=== PATIENT | female | born 2000 | race Caucasian/White ===

== ENCOUNTER 2023-04-05 14:15 | Outpatient (AMB) | payer MEDICAID, SELFPAY ==
--- NOTE | 2023-04-05 14:19 | A.OFFVIS_ITS ---
Intake Vital Signs 04/05/23 14:26 Weight 168 lb BP 150/89 H Blood Pressure Location Rt brachial Position Sitting Pulse 76 Intake Visit Reasons: Pilonidal cyst Intake Note: This patient presents for an assessment for pilonidal cyst. Patient c/o; Onset 3 days, reports symptoms intermittent pain. 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 She has had this area of recurrent pain and swelling near the tailbone for several years now. She says that she had an I and D for this 3 times in the past. This has been recurring and she has had this persistent swelling. She said she had been unable to see a surgeon because she did not have a primary care physician before. She denies any previous surgeries aside from I&D for this area. She admits to being a heavy smoker. [facility] Medical History Sacrococcygeal pilonidal cyst Smoker Surgical History History of surgical removal of pilonidal cyst Family History (Updated 04/05/23 @ 14:32 by JACK Cast) Other Lung cancer Ovarian cancer Social History (Updated 04/05/23 @ 14:31 by JACK Cast) Alcohol intake: never Patient Tobacco Use Status: Current everyday Tobacco user Tobacco use type: Smokeless Tobacco Review of Systems Const Denies chills and Denies fever(s) Card Denies chest pain, Denies dyspnea and Denies dyspnea on exertion Resp Denies cough, Denies dyspnea and Denies dyspnea on exertion GI Denies hematochezia and Denies change in bowel habits Denies hematuria Musc Denies back pain and Denies limited range of motion Neuro Denies focal weakness and Denies convulsions Psych Denies depression and Denies mood swings Physical Exam Vital Signs: Last Vital Signs Pulse 76 04/05/23 14:26 BP 150/89 H 04/05/23 14:26 Const General: comfortable and no acute distress Orientation/consciousness: patient oriented x3 Neck Neck: Yes no lymphadenopathy Resp Auscultation: clear to auscultation bilaterally Cardio Rhythm: regular rhythm GI Palpation (GI): Soft to palpation, nontender and no guarding Back/Spine/Pelvis Other: On the sacrococcygeal area to the right of the midline is note of a induration, about 2.8 cm in diameter, nonfluctuant, no cellulitis, no obvious midline pits at this time Neuro General: patient oriented x3 Assessment & Plan Assessment & Plan (1) Sacrococcygeal pilonidal cyst: Code(s): L05.91 - Pilonidal cyst without abscess Plan: She wants to proceed with excision. I had a long discussion with her about the technique of excision under anesthesia. I reviewed the risks including but not limited to bleeding, infections, poor healing, postop pain, as well as the benefits and alternatives. I explained to her what to expect postoperatively She understand and wants to proceed. Coding Level of Care Code New Pt Level 3 (58061) Diagnoses Sacrococcygeal pilonidal cyst L05.91
[2023-04-05 14:26] VITALS: BP 150/89; PULSE 76
== END 2023-04-05 15:06 | disposition home or self-care (01) ==
PROVIDERS: PCP Nurse Practitioner Family; Referring Provider Family Medicine; Visit Provider Surgery
DX: L05.91 Pilonidal cyst without abscess (principal)
CPT/HCPCS: 99203

== ENCOUNTER → 2023-04-05 14:15 | Outpatient (BNVA) | payer MEDICAID, SELFPAY | PROVIDERS: PCP Nurse Practitioner Family; Referring Provider Family Medicine; Visit Provider Surgery | DX: L05.91 Pilonidal cyst without abscess (principal) | CPT/HCPCS: 99202 ==

== ENCOUNTER 2023-04-23 09:34 | Day surgery (SDC) | payer MEDICAID, SELFPAY ==
[2023-04-22 10:03] VITALS: BMI 29.2
--- NOTE | 2023-04-22 12:09 | HO.ANESPROP2 ---
HPI - Anesthesia Eval Consult details Narrative: 23yo F for Excision Pilonidal Cyst,sacrococcygeal area PMFSH Active Problems Active Problems: All Active Problems Sacrococcygeal pilonidal cyst (Acute) Smoker (Acute) Past Medical History Medical History Sacrococcygeal pilonidal cyst Smoker Family History Family History (Updated 04/05/23 @ 14:32 by JACK Cast) Other Lung cancer Ovarian cancer Surgical History Surgical History History of surgical removal of pilonidal cyst Social History Social History (Updated 04/22/23 @ 10:03 by Trina Sims RN) Household Members: Family Housing: House Are you a primary primary health care nurse to a significant other at home: No Do you presently have visiting nurse or other home services: No Alcohol intake: never Patient Tobacco Use Status: Current everyday Tobacco user Tobacco use type: Cigarette Cigarettes Per Day: 10 Smoked in Last 30 Days: Yes Use of substances other than those prescribed or required for medical reasons: Yes Substance Use Type Other:: last used crack/cocaine 2018 Substance Use Frequency: Daily Have you been hit, kicked, punched, or otherwise hurt by someone within the past year? If so, by whom?: No Are you DNR?: No Advance Directives: No Advance Directives Information Provided: Yes Advance Directives on File: No Recently lost weight without trying: No Nutrition Risks: No Nutritional Risk Meds Allergies Allergy/AdvReac Type Severity Reaction Status Date / Time lamotrigine [From Lamictal] Allergy Hives Verified 04/22/23 09:59 Home Medications Medication Instructions Recorded Confirmed Last Taken Type No Known Home Meds 04/05/23 04/22/23 Unknown History Exam Height,Weight and Vital Signs: Height 5 ft 4 in Weight 77.111 kg Assessment and Plan Assessment Anesthesia Assessment: Chart Reviewed
[2023-04-23] VITALS (8 sets, daily range): BP systolic 96–115; BP diastolic 42–70; PULSE 56–68; RESP 14–18; TEMP 36.3–36.9; O2SAT 98–100; BMI 29.3
[2023-04-23 10:23] LABS: UPreg QC Valid YES; Urine Pregnancy NEGATIVE (NEGATIVE)
[2023-04-23] MEDS: Lactated Ringers 1,000 ML 100 ML IVCONT (10:42)
--- NOTE | 2023-04-23 12:12 | MHC.SHP ---
Pre-Procedural Eval Section A - 24 Hr Update-Section A only Date of Service: 04/23/23 The patient is an INPATIENT: No Changes since office visit: No Cold of Flu in the past 2 weeks, No New Medical Problems, No Changes in Medication and No Patient answered all questions The patient has been examined within 24 hours of the surgical procedure. The History & Physical has been completed within 30 days and I have reviewed it.: Yes Section B - Complete if H&P > 30 days Chief Complaint: Pilonidal cyst without abscess Allergies: Allergies Allergy/AdvReac Type Severity Reaction Status Date / Time lamotrigine [From Lamictal] Allergy Hives Verified 04/23/23 10:14 Plan I have reviewed the history and physical and performed a pertinent physical examination on my patient. No changes have occurred unless specified. Time Spent With Patient Time: Total time managing care of this patient today ____ minutes.
--- NOTE | 2023-04-23 12:22 | P.CONAN_ITS ---
[facility] Active Problems Active Problems: All Active Problems (Updated 04/05/23 @ 15:01 by Matthew Kelly MD) Sacrococcygeal pilonidal cyst (Acute) Smoker (Acute) Past Medical History Medical History Sacrococcygeal pilonidal cyst Smoker Family History Family History Other Lung cancer Ovarian cancer Surgical History Surgical History History of surgical removal of pilonidal cyst Social History Social History Household Members: Family Housing: House Are you a primary healthcare economics manager to a significant other at home: No Do you presently have visiting nurse or other home services: No Alcohol intake: never Patient Tobacco Use Status: Current everyday Tobacco user Tobacco use type: Cigarette Cigarettes Per Day: 10 Smoked in Last 30 Days: Yes Use of substances other than those prescribed or required for medical reasons: Yes Substance Use Type Other:: last used crack/cocaine 2018 Substance Use Frequency: Daily Have you been hit, kicked, punched, or otherwise hurt by someone within the past year? If so, by whom?: No Are you DNR?: No Advance Directives: No Advance Directives Information Provided: Yes Advance Directives on File: No Recently lost weight without trying: No Nutrition Risks: No Nutritional Risk Meds Allergies Allergy/AdvReac Type Severity Reaction Status Date / Time lamotrigine [From Lamictal] Allergy Hives Verified 04/23/23 10:14 Active Medications: Current Medications Albuterol Sulfate (Albuterol Sulfate (0.083%) 2.5 Mg/3 Ml Vial.Neb) 2.5 mg INHALE ONCE PRN PRN Reason: Shortness of Breath/Wheezing Fentanyl (Fentanyl Citrate/Pf 100 Mcg/2 Ml Vial) 25 mcg IVPUSH Q5M PRN; Protocol PRN Reason: Pain, Moderate(Pain Scale 4-6) Lactated Ringer's (Lr) 1,000 mls @ 100 mls/hr IVCONT .Q10H LANA Last Admin: 04/23/23 10:42 Dose: 100 mls/hr Ondansetron HCl (Ondansetron Hcl 4 Mg/2 Ml Vial) 4 mg IVPUSH ONCE PRN PRN Reason: Nausea and Vomiting Exam Height,Weight and Vital Signs: Height 5 ft 4 in Weight 77.474 kg Last Vital Signs Temp 98.4 F 04/23/23 10:39 Pulse 68 04/23/23 10:39 Resp 15 04/23/23 10:39 BP 107/68 04/23/23 10:39 Pulse Ox 98 04/23/23 10:39 O2 Del Method Room Air 04/23/23 10:39 Pertinent Lab Results Pertinent Lab Results: Laboratory Tests 04/23/23 10:15 Urine Test NEGATIVE
--- NOTE | 2023-04-23 13:16 | W.PM.OPN ---
Operative Note Operative Note Date of Service: 04/23/23 Narrative: Preop diagnosis: Pilonidal cyst sacrococcygeal area Postop diagnosis: Same Procedure: Excision of pilonidal cyst, sacrococcygeal area Surgeon: Matthew Kelly MD The patient is a 23 year old female with note of an area of recurrent drainage and swelling on the tailbone. This was consistent with a pilonidal cyst. She understood the technique of excision under anesthesia and was aware of the risks, benefits, and alternatives. She was brought to the operating room placed supine under general anesthesia via laryngeal mask airway. The buttocks were retracted with wide tape laterally. The perianal area was prepped and draped in the usual sterile fashion. A surgical time-out was done. The patient received cefazolin 2 g IV preoperatively Examination of the sacrococcygeal area revealed midline pits as well as an induration to the right of the midline. I marked my planned line of incision and infiltrated this with lidocaine 1%. I made an elliptical incision surrounding the area of induration using a blade 15. This incision was made wider on the right side to include the entire indurated area. This incision was carried down through the full-thickness of the skin and subcutaneous fat. I made sure that I included all indurated and diseased tissue including the thick subcutaneous layer.. I excised an area about 8 cm by 3 cm deep into the subcutaneous layer. I irrigated. I released the tapes. I incised the subcutaneous layer on the right side to create flaps and allow her without tension. I observed for hemostasis. I cauterized oozing areas. Once hemostasis was confirmed, I reapposed the deep subcutaneous layer with multiple Polysorb 3-0 interrupted sutures. Skin closure was achieved with nylon 3-0 simple interrupted sutures alternating with vertical mattress sutures. I infiltrated the area with Marcaine 0.5% for postop analgesia. Dressings were applied. The procedure was then completed The patient tolerated procedure well. There were no immediate complications. Initial and final counts of sponges and instruments were correct. Estimated blood loss about 20 cc. The patient was extubated without difficulty and transferred to the recovery room with stable vital signs.
== END 2023-04-23 14:33 | disposition home or self-care (01) ==
PROVIDERS: Nurse Practitioner; PCP Internal Medicine; Visit Provider Surgery
PROC: (CPT 11771; principal; 2023-04-23 11:50)
DX: L05.91 Pilonidal cyst without abscess (principal); Z79.899 Other long term (current) drug therapy; Z88.8 Allergy status to other drugs, medicaments and biological substances; F17.210 Nicotine dependence, cigarettes, uncomplicated
CPT/HCPCS: 11771; 81025; 88304; J0131; J0330; J0665; J0690; J1100; J2250; J2405; J2704; J3010

== ENCOUNTER → 2023-04-23 09:34 | Outpatient (BNV) | payer MEDICAID, SELFPAY | PROVIDERS: PCP Internal Medicine; Visit Provider Surgery | DX: L05.91 Pilonidal cyst without abscess (principal) | CPT/HCPCS: 11771 ==

== ENCOUNTER 2023-05-06 14:52 | Outpatient (AMB) | payer MEDICAID, SELFPAY ==
--- NOTE | 2023-05-06 14:57 | A.OFFVIS_ITS ---
Intake Intake Visit Reasons: S/P exc. pilonidal cyst Intake Note: This patient presents for a post-op assessment status post excision of pilonidal cyst sacrococcygeal area. Pt c/o; reports no complaints. 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 pilonidal cyst HPI Details She underwent excision of a pilonidal cyst from the sacrococcygeal area under anesthesia last 04/23/2023. She tolerated procedure well She currently says she feels well and denies significant complaints. [facility] Medical History Sacrococcygeal pilonidal cyst Smoker Surgical History History of surgical removal of pilonidal cyst Family History Other Lung cancer Ovarian cancer Social History Household Members: Family Housing: House Are you a primary hospice patient care secretary to a significant other at home: No Do you presently have visiting nurse or other home services: No Alcohol intake: never Patient Tobacco Use Status: Current everyday Tobacco user Tobacco use type: Cigarette Cigarettes Per Day: 10 Review of Systems Const Denies chills and Denies fever(s) Card Denies chest pain, Denies dyspnea and Denies dyspnea on exertion Resp Denies cough, Denies dyspnea and Denies dyspnea on exertion GI Denies hematochezia and Denies change in bowel habits Denies hematuria Musc Denies back pain and Denies limited range of motion Neuro Denies focal weakness and Denies convulsions Psych Denies depression and Denies mood swings Physical Exam Const General: comfortable and no acute distress Resp Effort & Inspection: normal respiratory effort Back/Spine/Pelvis Other: Excision site is well healed, sutures intact, some skin separation on the most inferior part of the wound, no discharge, no cellulitis or signs of infection Assessment & Plan Assessment & Plan (1) Sacrococcygeal pilonidal cyst: Code(s): L05.91 - Pilonidal cyst without abscess Plan: Status post excision. The incision is well healed. I removed all her sutures. There is note of a small area of skin separation in the inferior aspect. I instructed her to continue to do good wound care. I will see her in the office in about a month for another wound check for this area of skin separation. Coding Level of Care Code Global (12247) Diagnoses Sacrococcygeal pilonidal cyst L05.91
== END 2023-05-06 15:11 | disposition home or self-care (01) ==
PROVIDERS: PCP Nurse Practitioner Family; Visit Provider Surgery
DX: L05.91 Pilonidal cyst without abscess (principal)
CPT/HCPCS: 99024

== ENCOUNTER → 2023-05-06 14:52 | Outpatient (BNVA) | payer MEDICAID, SELFPAY | PROVIDERS: PCP Nurse Practitioner Family; Visit Provider Surgery | DX: Z48.817 Encounter for surgical aftercare following surgery on the skin and subcutaneous tissue (principal); Z87.2 Personal history of diseases of the skin and subcutaneous tissue; Z98.890 Other specified postprocedural states | CPT/HCPCS: 99212 ==

== ENCOUNTER 2023-05-12 08:41 | Outpatient (AMB) | payer MEDICAID, SELFPAY ==
--- NOTE | 2023-05-12 08:45 | A.OFFVIS_ITS ---
Intake Intake Visit Reasons: 2 openings along incision, s/p pilonidal cyst Intake Note: This patient presents for a two week follow-up for wound check, 2 openings along incision, s/p excision pilonidal cyst. Pt c/o; reports no changes. Education Rn Required: No Accompanied by: Self / Same As Patient Allergies lamotrigine [From Lamictal] Allergy (Verified 05/12/23 08:46) Hives HPI 2 openings along incision, s/p pilonidal cyst HPI Details She had undergone excision of a pilonidal cyst last April 23. I removed her sutures last week However, she was concerned that 1 of the areas seemed to be open. She therefore to be seen today. She denies any other current complaints although she mentions that last week she had some episodes of nausea and diarrhea. [facility] Medical History Sacrococcygeal pilonidal cyst Smoker Surgical History History of surgical removal of pilonidal cyst Family History Other Lung cancer Ovarian cancer Social History Household Members: Family Housing: House Are you a primary physician primary care sports medicine to a significant other at home: No Do you presently have visiting nurse or other home services: No Alcohol intake: never Patient Tobacco Use Status: Current everyday Tobacco user Tobacco use type: Cigarette Cigarettes Per Day: 10 Review of Systems Const Denies chills and Denies fever(s) Card Denies chest pain Resp Denies cough GI Reports diarrhea Physical Exam Const General: comfortable and no acute distress Resp Effort & Inspection: normal respiratory effort Back/Spine/Pelvis Other: Excision site on the sacrococcygeal area is actually clean, dry, no cellulitis, no redness, small area of skin separation inferiorly Assessment & Plan Assessment & Plan (1) Sacrococcygeal pilonidal cyst: Code(s): L05.91 - Pilonidal cyst without abscess Plan: Status post excision. She was concerned about a small area of skin separation inferiorly. I told her that this was clean and not infected. I explained to her that this will regranulate on its own and reepithelialize. I instructed her to continue to do good wound care. I told her to call the office or come back to be seen if she has any further concerns down the line. Coding Level of Care Code Global (35382) Diagnoses Sacrococcygeal pilonidal cyst L05.91
== END 2023-05-12 08:59 | disposition home or self-care (01) ==
PROVIDERS: PCP Nurse Practitioner Family; Visit Provider Surgery
DX: L05.91 Pilonidal cyst without abscess (principal)
CPT/HCPCS: 99024

== ENCOUNTER → 2023-05-12 08:41 | Outpatient (BNVA) | payer MEDICAID, SELFPAY | PROVIDERS: PCP Nurse Practitioner Family; Visit Provider Surgery | DX: Z48.817 Encounter for surgical aftercare following surgery on the skin and subcutaneous tissue (principal) | CPT/HCPCS: 99212 ==